=== PATIENT | female | born 1990 | race Caucasian/White ===

== ENCOUNTER 2016-11-12 19:49 | Inpatient (IN) | payer OTHER, SELFPAY ==
[~2016-11-12] VITALS: Ht 170.2 cm; Wt 75.3 kg
[~2016-11-12 19:49] MED LIST: BENZ1TAB10 PO; LITH300C3 PO; LITH600 PO; RISP2 PO
[2016-11-12 20:55] LABS: BASOPHILS # (AUTO) 0.03 K/uL (0.00-0.20); BASOPHILS % (AUTO) 0.3 % (0.0-2.0); EOSINOPHILS # (AUTO) 0.02 K/uL (0.00-0.70); EOSINOPHILS % (AUTO) 0.13 % (1.0-6.0); HEMATOCRIT 37.2 % (36-46); HEMOGLOBIN 12.8 g/dL (12.0-16.0); LYMPHOCYTES % (AUTO) 8.5 % (22.0-44.0); MEAN CORPUSCULAR HEMOGLOBIN 31.7 pg (26.0-34.0); MEAN CORPUSCULAR HGB CONC 34.4 G/dL (31.0-37.0); MEAN CORPUSCULAR VOLUME 92 fL (80-100); MONOCYTES # (AUTO) 0.3 K/uL (0.1-1.0); MONOCYTES % (AUTO) 2.7 % (2.0-9.0); NEUTROPHILS # (AUTO) 10.7 K/uL (1.8-7.7); PLATELET COUNT (AUTO) 222 K/uL (150-450); RED BLOOD CELL COUNT(AUTO) 4.04 MIL/uL (4.00-5.20); WHITE BLOOD COUNT (AUTO) 12.1 K/uL (4.5-11.0)
[2016-11-12 20:56] LABS: NEUTROPHILS % (AUTO) 88.4 % (40.0-70.0)
[2016-11-12 21:14] LABS: SODIUM SERUM 144 mmol/L (136-145)
[2016-11-12 21:15] LABS: ALANINE AMINOTRANSFERASE 33 U/L (12-78); ALBUMIN 3.8 g/dL (3.4-5.0); ANION GAP 12 mmol/L (8-16); ASPARTATE AMINOTRANSFERASE 22 U/L (15-37); BILIRUBIN,TOTAL 0.5 mg/dL (0.1-1.0); CALCIUM, TOTAL 8.4 mg/dL (8.8-10.5); CARBON DIOXIDE 26 mmol/L (22-29); CHLORIDE 106 mmol/L (98-107); GLOMERULAR FILTR. RATE CALC > 60 mL/min (>60); POTASSIUM 3.8 mmol/L (3.5-5.1); TOTAL PROTEIN, SERUM 7.4 g/dL (6.4-8.2); UREA NITROGEN, BLOOD 9 mg/dL (7-18)
[2016-11-12 21:19] LABS: RBC MORPHOLOGY COMMENT NORMAL RBC MORPH
[2016-11-12 21:34] LABS: LITHIUM < 0.20 mmol/L (0.60-1.20)
[2016-11-12] MEDS ORDERED: HALOPERIDOL 5 MG TABLET PO PRN (23:45)
[2016-11-12] MEDS ORDERED: LORazepam 2 MG TABLET PO PRN (23:45)
[2016-11-12] MEDS ORDERED: ZOLPIDEM TARTRATE 10 MG TABLET PO PRN (23:45)
[2016-11-13 00:14] VITALS: BP 112/69
[2016-11-13 02:09] VITALS: BP 115/74
[2016-11-13 08:30] LABS: APPEARANCE,URINE CLOUDY (CLEAR); GLUCOSE, URINE (UA) NEGATIVE (NEGATIVE); KETONES,URINE NEGATIVE (NEGATIVE); LEUKOCYTE ESTERASE ,URINE TRACE (NEGATIVE); OCCULT BLOOD,URINE LARGE (NEGATIVE); PROTEIN,URINE POS 1+ (NEGATIVE)
[2016-11-13] MEDS ORDERED: LITHIUM CARBONATE 300 MG CAPSULE PO SCH (09:00)
[2016-11-13] MEDS ORDERED: RisperiDONE 2 MG TABLET PO SCH (09:00)
[2016-11-13] MEDS ORDERED: BENZTROPINE MESYLATE 1 MG TABLET PO SCH (09:00)
[2016-11-13 09:11] VITALS: BP 106/60
[2016-11-13 12:41] LABS: ADD UA MICROSCOPIC YES
[2016-11-13 12:43] LABS: RBC,URINE 51-100 /HPF (0-2)
[2016-11-13 12:44] LABS: SQUAMOUS EPITHELIAL CELL,UR Few /LPF (None Seen)
[2016-11-13] MEDS ORDERED: LITHIUM CARBONATE 600 MG CAPSULE PO SCH (21:00)
== END 2016-11-13 12:45 | disposition home or self-care (01) | DRG 885 ==
LOC: EMS 19:54 → 3EI 21:45 → UNDOADMIN 21:45
PROVIDERS: ADMIT Psychiatry & Neurology Psychiatry; ATTEND Psychiatry & Neurology Psychiatry
DX: F31.9 Bipolar disorder, unspecified (principal); R45.851 Suicidal ideations; F25.9 Schizoaffective disorder, unspecified; F60.9 Personality disorder, unspecified; D72.829 Elevated white blood cell count, unspecified; F12.10 Cannabis abuse, uncomplicated; Z79.84 Long term (current) use of oral hypoglycemic drugs
CPT/HCPCS: 87086; 99285; G0480